=== PATIENT | female | born 1955 | race Caucasian/White ===

== ENCOUNTER 2016-12-03 18:28 | Inpatient (IN) | payer SELFPAY ==
[2016-12-03] MEDS ORDERED: DIPRIVAN 10 MG/ML IV ONE (20:22)
[2016-12-03] MEDS ORDERED: NACL 0.9% 1000 ML 1,000 ML IV ONE (20:23)
[2016-12-03] MEDS ORDERED: TYLENOL PO ONE (20:39)
[2016-12-03] MEDS ORDERED: MORPHINE IM ONE (20:39)
--- NOTE | 2016-12-03 21:18 | XRay Report ---
FINAL REPORT PROCEDURE: XR KNEE 1-2V RT TECHNIQUE: RIGHT knee radiographs, AP and lateral views. CPT 41431 HISTORY: right knee pain COMPARISON: No prior studies are available for comparison. FINDINGS: Fracture (s) and/or Dislocation(s): Comminuted fracture of the proximal shaft of the tibia. Fracture of the lateral tibial plateau with depression of 1.5 cm. Fracture of the proximal fibula.. Alignment: Normal . Joint space(s): Tricompartmental degenerative change. Soft tissues: Moderate joint effusion with fluid level consistent with hemarthrosis. Bone mineralization: Diminished. Foreign bodies: None . IMPRESSION: Proximal tibia fracture with depression of the lateral tibial plateau. Proximal fibular fracture. Joint effusion with hemarthrosis.
[2016-12-03] MEDS ORDERED: MORPHINE IV ONE (21:53)
[2016-12-03] MEDS ORDERED: BENADRYL IV ONE (21:53)
--- NOTE | 2016-12-03 21:56 | Emergency Department Report ---
HPI - General Time Seen by Provider: 12/03/16 19:57 - HPI HPI: The patient's is 61-year-old female who presents for evaluation of leg pain. The patient reports right knee pain for the past one hour prior to arrival, constant since onset, 10/10 in severity, throbbing quality, exacerbated with attempting movement of the right knee. She states that she fell down a possibly 7 stairs and injured her right knee. She has been unable to ablate on the right knee since. She denies, injury to the head, headache, syncope, chest pain, dyspnea, abdominal pain, back pain, pain elsewhere. ED Review of Systems ROS: Stated complaint: DISLOCATED KNEE Other details as noted in HPI Constitutional: denies: fever ENT: denies: throat or neck pain Respiratory: denies: cough, shortness of breath Cardiovascular: denies: chest pain Endocrine: denies unexplained weight loss or gain Gastrointestinal: denies: abdominal pain, nausea Genitourinary: denies: dysuria Musculoskeletal: denies: leg swelling Skin: denies: rash Neurological: denies: headache Hematological/Lymphatic: denies: easy bleeding or easy bruising Psych: reports sadness or hopelessness Physical Exam - Physical Exam Vital Signs: Blood pressure 100/70 heart rate 69 temperature 90.8 Fahrenheit respirations 18 O2 sat 99% Physical Exam: General: well-nourished, well-developed, no acute distress Head: Normocephalic, atraumatic Eyes: normal sclera, EOMI, PERRL ENT: Mucous membranes are pink and moist Neck: trachea midline, neck supple, No neck stiffness, no cervical adenopathy Respiratory: Breath sounds equal bilaterally, no wheezing, rales, or rhonchi Cardio: S1 and S2 present, no murmurs, rubs, gallops, capillary refill is brisk Abdomen: Normoactive bowel sounds, soft abdomen, no tenderness, no flank tenderness Musc: Deformity to the right knee present, right knee is swollen, lateral, and medial joint line tenderness to palpation present, there is knee effusion, distal pulses, sensation intact, motor function in the toes intact Skin: No rash Neuro: no facial drooping, normal speech Psych: Normal affect ED Medical Decision Making - Lab Data Result diagrams: 12/03/16 21:47 12/03/16 21:47 - Medical Decision Making The patient was seen and examined by myself. The patient is placed on a flight coordinator and continuous pulse ox. On initial evaluation, the patient was found to be in no distress. Evaluation orders were placed. The patient is given IV morphine for pain. X-ray of the right knee reveals a closed comminuted right tib-fib fracture, with 1.5 cm of compression of the lateral tibial plateau, also associated with hemarthrosis. The on-call orthopedic surgeon Dr. Day was contacted. He agrees to consultation and requested the patient be admitted for open reduction internal fixation. He also requests that the patient received CT scan of the right knee. The CT scan order was placed as a courtesy and preop labs were obtained. Lab results revealed mild nonspecific leukocytosis of 14, likely stress reaction. The on-call hospitalist service was contacted. They agreed to admit the patient for further treatment and close monitoring. The ED admit order was placed. The patient was admitted in guarded condition. Critical care attestation.: If time is entered above; I have spent that time in minutes in the direct care of this critically ill patient, excluding procedure time. ED Disposition Clinical Impression: Closed fracture of tibia and fibula Qualifiers: Encounter type: initial encounter Laterality: right Qualified Code(s): S82.201A - Unspecified fracture of shaft of right tibia, initial encounter for closed fracture Closed fracture of lateral portion of right tibial plateau Qualifiers: Encounter type: initial encounter Qualified Code(s): S82.121A - Displaced fracture of lateral condyle of right tibia, initial encounter for closed fracture Disposition: DC09 OP ADMIT IP TO THIS HOSP Is pt being admited?: Yes Does the pt Need Aspirin: Yes Condition: Serious Time of Disposition: 21:54
[2016-12-03 22:03] LABS: Basophils % (Auto) 0.3 % (0.0-1.8); Eosinophils % (Auto) 0.4 % (0.0-4.3); Hematocrit 39.8 % (30.3-42.9); Mean Corpuscular HGB Conc 33 % (30-34); Mean Corpuscular Hemoglobin 27 pg (28-32); Mean Corpuscular Volume 82 fl (79-97); Platelet Count 293 K/mm3 (140-440); Red Blood Count 4.87 M/mm3 (3.65-5.03); Red Cell Distribution Width 14.4 % (13.2-15.2); White Blood Count 14.8 K/mm3 (4.5-11.0)
[2016-12-03] MEDS ORDERED: NACL 0.9% 1000 ML 1,000 ML ONE (22:11)
[2016-12-03 22:14] LABS: INR 1.12 (0.87-1.13)
[2016-12-03 22:15] LABS: Partial Thromboplastin Time 30.3 Sec. (24.2-36.6)
[2016-12-03 22:21] LABS: Anion Gap 19 mmol/L; BUN/Creatinine Ratio 17.77; Blood Urea Nitrogen 16 mg/dL (7-17); Calcium 8.8 mg/dL (8.4-10.2); Carbon Dioxide 25 mmol/L (22-30); Chloride 99.9 mmol/L (98-107); Glucose 123 mg/dL (65-100); Potassium 4.8 mmol/L (3.6-5.0); Sodium 139 mmol/L (137-145)
--- NOTE | 2016-12-03 23:37 | History and Physical Report ---
History of Present Illness Chief complaint: I fell and hurt my knee History of present illness: 61 YO Female with Obesity presents to ED for evaluation. Pt states that she tripped and fell down a flight of stairs and felt pain to her right knee. The patient reports right knee pain for the past one hour prior to arrival, constant since onset, 10/10 in severity, throbbing quality, exacerbated with movement and relieved with rest. Pt unable to ablate and bear weight on the right knee since. Pt denies, fever, chills, CP, Palpitations, NVD, Syncope, Trauma, headache, dyspnea, abdominal pain, back pain, productive cough, recent ill contacts. Past History Past Medical History: other (obesity) Past Surgical History: No surgical history, Other (reviewed) Social history: single, lives with family. denies: smoking, alcohol abuse, prescription drug abuse Family history: hypertension Medications and Allergies Allergies Allergy/AdvReac Type Severity Reaction Status Date / Time ibuprofen [From Motrin] Allergy Headache Verified 12/03/16 22:24 Review of Systems All systems: negative Constitutional: other (right knee pain) Ears, nose, mouth and throat: no ear pain Breasts: no swelling Cardiovascular: no chest pain Respiratory: no cough Gastrointestinal: no abdominal pain Genitourinary Female: no urgency Musculoskeletal: no neck stiffness Integumentary: no rash Neurological: no weakness Psychiatric: no anxiety Endocrine: no cold intolerance Hematologic/Lymphatic: no easy bruising Allergic/Immunologic: no urticaria Exam - Constitutional Vitals: Temp Pulse Resp BP Pulse Ox 98 F 69 17 100/70 99 12/03/16 22:08 12/03/16 22:08 12/03/16 22:08 12/03/16 22:08 12/03/16 22:08 General appearance: Present: mild distress - EENT Eyes: Present: PERRL ENT: hearing intact, clear oral mucosa - Neck Neck: Present: supple, normal ROM - Respiratory Respiratory effort: normal Respiratory: bilateral: CTA - Cardiovascular Heart Sounds: Present: S1 & S2. Absent: rub, click - Extremities Extremities: pulses symmetrical, No edema, abnormal (right knee pain) Peripheral Pulses: within normal limits - Abdominal General gastrointestinal: Present: soft, non-tender, non-distended, normal bowel sounds Female genitourinary: Present: normal - Integumentary Integumentary: Present: clear, warm, dry - Musculoskeletal Musculoskeletal: gait normal, strength equal bilaterally - Psychiatric Psychiatric: appropriate mood/affect, intact judgment & insight - Neurologic Neurologic: CNII-XII intact, moves all extremities Results - Labs CBC & Chem 7: 12/03/16 21:47 12/03/16 21:47 Labs: Abnormal lab results 12/03/16 12/03/16 Range/Units 21:47 21:47 WBC 14.8 H (4.5-11.0) K/mm3 MCH 27 L (28-32) pg Lymph % (Auto) 7.9 L (13.4-35.0) % [place] # 1.1 H (0.0-0.8) K/mm3 Seg Neutrophils % 84.2 H (40.0-70.0) % Seg Neutrophils # 12.5 H (1.8-7.7) K/mm3 Glucose 123 H (65-100) mg/dL Assessment and Plan - Patient Problems (1) Closed fracture of lateral portion of right tibial plateau Current Visit: Yes Status: Acute Qualifiers: Encounter type: initial encounter Fracture healing: F Qualified Code(s): S82.121A - Displaced fracture of lateral condyle of right tibia, initial encounter for closed fracture Plan to address problem: Ortho consulted, pending surgical intervention, NPO after midnight (2) Obesity Current Visit: Yes Status: Acute Qualifiers: Obesity type: O Obesity classification: O Serious obesity comorbidity presence: S Body mass index: BMI 35.0-35.9 Plan to address problem: Balanced diet, increased physical activity, (3) DVT prophylaxis Current Visit: Yes Status: Acute
[2016-12-03] MEDS ORDERED: PROVENTIL IH PRN (23:43)
[2016-12-03] MEDS ORDERED: TYLENOL PO PRN (23:43)
[2016-12-03] MEDS ORDERED: DULCOLAX PR PRN (23:43)
[2016-12-03] MEDS ORDERED: ZOFRAN IV PRN (23:43)
[2016-12-03] MEDS ORDERED: MORPHINE IV PRN (23:43)
[2016-12-03] MEDS ORDERED: MILK OF MAGNESIA PO PRN (23:43)
--- NOTE | 2016-12-04 00:29 | Cat Scan Report ---
FINAL REPORT EXAM: CT LOWER EXTREMITY RT WO CON HISTORY: right knee pain FALL TECHNIQUE: Spiral CT scanning of the right knee. No IV contrast administered. Multiplanar reformations. PRIORS: Right knee radiographs of same date. FINDINGS: [place]-appearing fracture of proximal tibial metaphysis extending primarily to lateral tibial plateau, but also involving posterior aspect of medial tibial plateau, with considerable comminution, mild-moderate distraction and displacement, particularly of the lateral plateau fragments measuring up to 1 cm. Depression difficult to measure due to patient positioning and obliquity, but approximates 7 mm bony step-off. Markedly comminuted fracture of fibular head-neck, with mild distraction. No dislocation. Small joint effusion and hemarthrosis. Diffuse surrounding soft tissue edema. Diffuse osteopenia and degenerative change in all 3 joint compartments. IMPRESSION: 1. Markedly comminuted and distracted fracture of proximal tibia involving primary lateral but also medial plateaus. 2. Similarly comminuted fracture of right fibular head-neck.
--- NOTE | 2016-12-04 06:49 | Admit Criteria Form ---
Admission Criteria Documentation: MUSCULOSKELETAL DISEASE GRG Clinical Indications for Admission to Inpatient Care (Place 'X' for any and all applicable criteria): Hospital admission is needed for appropriate care of the patient because of 1 or more of the following: [ X]I. Fracture, dislocation, or other musculoskeletal injury requiring inpatient care(medical) as indicated by 1 or more of the following(4)(5)(6)(7) [ ]a) Vertebral fracture requiring observation for instability or neurologic compromise (8) [ ]b) Compartment syndrome (proven or cannot be ruled out during observation level of care) (9) [ ]c) Limb-threatening injury [ X]d) Major injury requiring inpatient stabilization such as traction initiation or external fixation before internal fixation or closure of complex or open fracture [ ]e) Major injury requiring inpatient treatment after emergency or observation level care (as appropriate) [ ]f) Severe pain requiring acute inpatient management [ ]g) Injury with suspicion of abuse or neglect (eg., child, dependent elderly) [ ]II. Newly diagnosed or suspected bone, joint, or orthopedic device infection (e.g., osteomyelitis, septic arthritis) needing 1 or more of the following(1)(2)(3) [ ]a) IV antibiotics that cannot be initiated in other than inpatient setting (e.g., patient too unstable or home infusion not available) [ ]b) Device removal or replacement [ ]c) Bone or soft tissue debridement [ ]d) Joint drainage (drain placement or repetitive aspirations) [ ]III. Severe rheumatologic disease (e.g., systemic lupus erythematosus, rheumatoid arthritis) with complications or comorbidities (Also use Optimal Recovery Care Criteria or General Recovery Criteria as appropriate on the basis of predominant condition), including 1 or more of the following( 10)(11)(12)(13) [ ]a) Severe infection (e.g., COMMUNICATIONS STRATEGIST infection, sepsis) (14) [ ]b) Respiratory complications, including 1 or more of the following : [ ]i) Pleural effusion with respiratory compromise [ ]ii) Pulmonary hypertension with congestive failure [ ]iii) Respiratory failure [ ]iv) Pulmonary hemorrhage (15) [ ]c) Hematologic disease, including 1 or more of the following: [ ]i) Coagulopathy with bleeding [ ]ii) Thrombosis with hypercoagulable state [ ]iii) Thrombotic thrombocytopenic purpura [ ]d) Cerebritis with seizures, psychosis, or other severe abnormalities [ ]e) Vertebral destruction with monitoring needed for cervical myelopathy& possible respiratory compromise [ ]f) Exacerbation that requires inpatient treatment (e.g., intravenous immunosuppression) (16) [ ]g) Acute renal failure [ ]h) Cerebritis with seizures, psychosis, Altered mental status, or other neurologic abnormalities [ ]i) Pericardial effusion with tamponade [ ]j) Vertebral destruction, with monitoring needed for cervical myelopathy and possible respiratory compromise [ ]IV. Severe vasculitis with complications or comorbidities (Also use Optimal Recovery Care Criteria General Recovery Criteria as appropriate on the basis of predominant condition), including 1 or more of the following(11)(12)(17)(18)(19)(20) [ ]a) Exacerbation that requires inpatient treatment (e.g., intravenous immunosuppression) (19)(21) [ ]b) Pulmonary hemorrhage (15) [ ]c) COMMUNICATIONS STRATEGIST vasculitis with seizures, psychosis, Altered mental status that is severe or persistent, or other severe abnormalities (22) [ ]d) Cerebral infarction [ ]e) Gastrointestinal ischemia [ ]f) Gangrene or threatened amputation [ ]g) Renal failure (16) [ ]h) Other significant complications of vasculitis ( eg., tissue or organ ischemia, organ dysfunction ) [ ]V. Severe myopathy as indicated by 1 or more of the following (28)(29) [ ]a) New onset of airway compromise or inability to swallow [ ]b) Respiratory deterioration with observation needed for impending respiratory failure [ ]c) Exacerbation that requires inpatient treatment (e.g., intravenous immunosuppression) [ ]. Severe crystal gout (arthropathy) indicated by 1 or more of the following (23)(24) [ ]a) Severe pain requiring acute inpatient management [ ]b) Exacerbation that requires inpatient treatment (e.g., intravenous treatment) [ ]VII.Rhabdomyolysis and 1 or more of the following (25)(26)(27) [ ]a) Acute renal failure [ ]b) Need for intravenous hydration after emergency or observation level care (as appropriate) [ ]c) Inability to maintain oral hydration [ ]d) Change in mental status [ ]e) Electrolyte abnormality that remains after emergency or observation level care (as appropriate) [ ]VIII Post amputation complication, as indicated by ANY ONE of the following [ ]a) Infection [ ]b) Dehiscence [ ]c) Myodesis failure [ ]IX. Severe pain requiring acute inpatient management due to musculoskeletal condition [ ]X. Musculoskeletal Disease and ALL of the following: [ ]a) Symptom or finding for which emergency and observation care have failed or are not considered appropriate (Use General Criteria: Observation Care as appropriate) [ ]b) Presence of ANY ONE of the following [ ]i) A General Admission Criteria [ ]ii) A Pediatric General Admission Criteria The original [facility] [employer] content created by [facility] [email or web address] has been revised. The portions of the content which have been revised are identified through the use of italic text or in bold, and [facility] has neither reviewed nor approved the modified material. All other unmodified content is copyright [facility] [employer]. Please see references footnoted in the original [facility] edition 2016 Admission Criteria Met: Yes
--- NOTE | 2016-12-04 07:13 | XRay Report ---
AP CHEST: HISTORY: Preoperative evaluation AP view of the chest demonstrates a normal mediastinal and cardiac contour with clear lungs and normal bony and soft tissue structures. IMPRESSION: Unremarkable AP chest.
[2016-12-04] MEDS ORDERED: LEVAQUIN 500MG/100ML 500 MG/100 ML BAG IV NR (08:00)
[2016-12-04 08:06] LABS: Basophils % (Auto) 0.1 % (0.0-1.8); Hematocrit 36.5 % (30.3-42.9); Hemoglobin 12.3 gm/dl (10.1-14.3); Mean Corpuscular HGB Conc 34 % (30-34); Mean Corpuscular Hemoglobin 27 pg (28-32); Mean Corpuscular Volume 81 fl (79-97); Platelet Count 273 K/mm3 (140-440); Red Cell Distribution Width 14.3 % (13.2-15.2); White Blood Count 9.4 K/mm3 (4.5-11.0)
--- NOTE | 2016-12-04 12:33 | Anesthesia Day of Surgery ---
Anesthesia Day of Surgery - Day of Surgery Patient Examined: Yes Patient H&P Reviewed: Yes Patient is NPO: Yes
--- NOTE | 2016-12-04 12:36 | Anesthesia Consultation ---
Anesthesia Consult and Med Hx Date of service: 12/04/16 - Airway Anesthetic Teeth Evaluation: Dentures (upper, some teeth on bottom row) ROM Head & Neck: Adequate Mental/Hyoid Distance: Adequate Mallampati Class: Class II Intubation Access Assessment: Probably Good - Pulmonary Exam CTA: Yes - Cardiac Exam Cardiac Exam: RRR - Pre-Operative Health Status ASA Pre-Surgery Classification: ASA2 Proposed Anesthetic Plan: General - Pulmonary Hx Smoking: No Hx Asthma: Yes (had not have flare in a long time, no inhaler uses) - Cardiovascular System Hx Hypertension: No Hx Heart Attack/AMI: No - Central Nervous System Hx Seizures: No CVA: No Hx Psychiatric Problems: No - Endocrine Hx Renal Disease: No Hx Liver Disease: No Hx Non-Insulin Dependent Diabetes: No Hx Hypothyroidism: Yes - Hematic Hx Anemia: No - Other Systems Hx Alcohol Use: No Hx Substance Use: No Hx Cancer: No Hx Obesity: Yes - Additional Comments Anesthesia Medical History Comments: NAC, states has allergic reaction (rash) for narcotic meds, facial swelling from ibuprofen and NSAID
[2016-12-04] MEDS ORDERED: NEO SYNEPHRINE/NS Syringe(OR USE) IV ONE (13:00)
[2016-12-04] MEDS: NACL 0.9% 1000 ML 1,000 ML IV SCH ×2 (13:00→20:35)
[2016-12-04] MEDS ORDERED: PEPCID PO NR (13:00)
[2016-12-04] MEDS ORDERED: VERSED IV NR (13:00)
[2016-12-04] MEDS ORDERED: DECADRON ONE (13:07)
[2016-12-04] MEDS ORDERED: XYLOCAINE 1% 20 mL ONE (13:07)
[2016-12-04] MEDS ORDERED: MARCAINE-EPI 0.5%-1:200,000 INFILTRATI ONE (13:08)
[2016-12-04] MEDS ORDERED: DIPRIVAN 10 MG/ML IV ONE (13:09)
--- NOTE | 2016-12-04 13:27 | Progress Note ---
Assessment and Plan Assessment and plan: Patient is 61-year-old woman with a history obesity BMI 35.2 presents to emergency department at [facility] after a mechanical fall with subsequent proximal right tibia fracture. -Acute closed nondisplaced fracture of the right tibia: Going for surgery today -Obesity, BMI 35.2: Lifestyle modification stress -DVT prophylaxis: Add subcutaneous heparin History Interval history: Patient seen and examined. Follow up on current diagnosis/right leg pains. Overnight uneventful. No cp, sob, n/v or severe headaches. Imaging, old records , testing, labs, nursing notes reviewed. Hospitalist Physical - Physical exam Narrative exam: GEN: WDWN, NAD, AWAKE, ALERT, ORIENTATED x 3 HEENT: NCAT, PERRL, EOMI, OP CLEAR NECK: SUPPLE, NO THYROMEGALY, NO JVD, NO LAD CVS: RRR, NORMAL S1S2 LUNGS/CHEST: CTA B, NORMAL CHEST EXPANSION B, GOOD AIR ENTRY B ABD: SOFT, NTND, GBS, NO REBOUND OR GUARDING EXT/SKIN: Right knee/upper leg SIGNIFICANT EDEMA OR RASH MSK: FROM X 4 EXTREMITIES except Limited range of motion of the right knee NEURO: CN 2-12 GROSSLY INTACT, NO FOCAL DEFICITS PSY: CALM - Constitutional Vitals: Temp Pulse Resp BP Pulse Ox 97.5 F L 67 14 112/51 97 12/04/16 11:05 12/04/16 11:05 12/04/16 11:05 12/04/16 11:05 12/04/16 11:05 Results - Labs CBC & Chem 7: 12/04/16 07:25 12/03/16 21:47 Labs: Laboratory Last Values WBC 9.4 K/mm3 (4.5-11.0) 12/04/16 07:25 RBC 4.50 M/mm3 (3.65-5.03) 12/04/16 07:25 Hgb 12.3 gm/dl (10.1-14.3) 12/04/16 07:25 Hct 36.5 % (30.3-42.9) 12/04/16 07:25 MCV 81 fl (79-97) 12/04/16 07:25 MCH 27 pg (28-32) L 12/04/16 07:25 MCHC 34 % (30-34) 12/04/16 07:25 RDW 14.3 % (13.2-15.2) 12/04/16 07:25 Plt Count 273 K/mm3 (140-440) 12/04/16 07:25 Lymph % (Auto) 8.7 % (13.4-35.0) L 12/04/16 07:25 [place] % (Auto) 2.1 % (0.0-7.3) 12/04/16 07:25 Eos % (Auto) 0.0 % (0.0-4.3) 12/04/16 07:25 Baso % (Auto) 0.1 % (0.0-1.8) 12/04/16 07:25 Lymph # 0.8 K/mm3 (1.2-5.4) L 12/04/16 07:25 [place] # 0.2 K/mm3 (0.0-0.8) 12/04/16 07:25 Eos # 0.0 K/mm3 (0.0-0.4) 12/04/16 07:25 Baso # 0.0 K/mm3 (0.0-0.1) 12/04/16 07:25 Seg Neutrophils % 89.1 % (40.0-70.0) H 12/04/16 07:25 Seg Neutrophils # 8.4 K/mm3 (1.8-7.7) H 12/04/16 07:25 PT 14.3 Sec. (12.2-14.9) 12/03/16 21:47 INR 1.12 (0.87-1.13) 12/03/16 21:47 APTT 30.3 Sec. (24.2-36.6) 12/03/16 21:47 Carbon Dioxide 25 mmol/L (22-30) 12/03/16 21:47 BUN 16 mg/dL (7-17) 12/03/16 21:47 Creatinine 0.9 mg/dL (0.7-1.2) 12/03/16 21:47 Estimated GFR > 60 ml/min 12/03/16 21:47 BUN/Creatinine Ratio 17.77 % 12/03/16 21:47 Glucose 123 mg/dL (65-100) H 12/03/16 21:47 Calcium 8.8 mg/dL (8.4-10.2) 12/03/16 21:47 Blood Type B POSITIVE 12/03/16 21:46 Antibody Screen TNR 12/03/16 21:46 TABATHA Antibody Screen Negative 12/03/16 21:46
[2016-12-04] MEDS ORDERED: XYLOCAINE MPF 2% ONE (14:07)
[2016-12-04] MEDS ORDERED: DILAUDID ONE ×2 (14:07→16:49)
[2016-12-04] MEDS ORDERED: ZOFRAN ONE (14:25)
[2016-12-04] MEDS ORDERED: NACL 0.9% 1000 ML 1,000 ML ONE (15:48)
--- NOTE | 2016-12-04 16:32 | Consultation ---
History of Present Illness - [facility] Consult date: 12/04/16 Consult reason: fracture History of present illness: 61 YO Female with Obesity presents to ED for evaluation. Pt states that she tripped and fell down a flight of stairs and felt pain to her right knee. The patient reports right knee pain for the past one hour prior to arrival, constant since onset, 10/10 in severity, throbbing quality, exacerbated with movement and relieved with rest. Pt unable to ablate and bear weight on the right leg. She was seen in the emergency room x-rays were taken revealing a bicondylar type right proximal tibia fracture with displacement. Past History Past Medical History: other (obesity) Past Surgical History: No surgical history, Other (reviewed) Social history: single, lives with family. denies: smoking, alcohol abuse, prescription drug abuse Family history: hypertension Medications and Allergies Allergies Allergy/AdvReac Type Severity Reaction Status Date / Time ibuprofen [From Motrin] Allergy Severe Swelling Verified 12/04/16 12:27 morphine AdvReac Rash Verified 12/04/16 12:29 Active Meds: Active Medications Acetaminophen (Tylenol) 650 mg PO Q4H PRN PRN Reason: Pain MILD(1-3)/Fever >100.5/KOENIG Albuterol (Proventil) 2.5 mg IH Q4HRT PRN PRN Reason: Shortness Of Breath Bisacodyl (Dulcolax) 10 mg NH QDAY PRN PRN Reason: Constipation unrelieved by MOM Famotidine (Pepcid) 20 mg PO PREOP NR Stop: 12/04/16 20:00 Last Admin: 12/04/16 13:00 Dose: 20 mg Heparin Sodium (Porcine) (Heparin) 5,000 unit SUB-Q Q12HR ESME Levofloxacin/Dextrose (Levaquin 500mg/100ml) 500 mg in 100 mls @ 100 mls/hr IV PREOP NR PRN Reason: Protocol Stop: 12/05/16 23:59 Sodium Chloride (Nacl 0.9% 1000 Ml) 1,000 mls @ 75 mls/hr IV DIRECT ESME Last Admin: 12/04/16 13:00 Dose: 75 mls/hr Magnesium Hydroxide (Milk Of Magnesia) 30 ml PO Q4H PRN PRN Reason: Constipation Midazolam HCl (Versed) 2 mg IV PREOP NR Stop: 12/04/16 23:59 Last Admin: 12/04/16 13:10 Dose: 2 mg Morphine Sulfate (Morphine) 2 mg IV Q6H PRN PRN Reason: Pain , Severe (7-10) Ondansetron HCl (Zofran) 4 mg IV Q8H PRN PRN Reason: N/V unrelieved by Reglan Oxycodone/Acetaminophen (Percocet 5/325) 1 tab PO Q6H PRN PRN Reason: Pain, Moderate (4-6) Physical Examination - Physical exam Narrative exam: Physical examination well-nourished moderately obese female in no obvious distress significant muscle skull findings relates to the right lower extremity. She was noted to have moderate swelling over the knee and proximal leg skin was intact she was tender to palpation there was gross motion detected distal neurovascular status is intact patient had a significant guarding therefore full physical examination of the knee not performed at this time Assessment and Plan Assessment -right bicondylar comminuted tibial plateau fracture Recommendations - she will require open reduction internal fixation right proximal tibia with plate and screws
--- NOTE | 2016-12-04 16:53 | Procedure Note ---
Date of procedure: 12/04/16 Pre-op diagnosis: right comminuted bicondylar tibial plateau fracture Post-op diagnosis: same Procedure: Procedure- open reduction internal fixation right tibial plateau Indications - 61-year-old female who sustained a comminuted bicondylar tibial plateau fracture as a result of a fall down some stairs prior to admission Procedure She was brought to the OR and placed in the OR table in the supine position following induction and intubation by anesthesia the patient's right lower extremity was prepped and draped in the usual sterile manner. A timeout procedure was done to identify the patient and the correct operative site. The leg was then exsanguinated followed by inflation of the pneumatic tourniquet to 300 mmHg. A medial incision was made again at the joint line and curving downward along the tibial shaft is taken down sharply through skin and subcutaneous Gap the retractors were placed in the wound base fracture was identified medially she was noted to have a somewhat transverse type fracture approximately 3 cm from the joint line and the bony fragments were then manipulated into a more reduced position next a 7-hole medial condylar plate was applied and held in place with a K wire C-arm fluoroscopy was used to evaluate the reduction medially next a 4.5 cortical screw was used to secure the plate medially forming a buttress. Next a second lateral incision was made again this was taken down through skin and subcutaneous the fracture site was identified patient was noted to have significant comminution along the lateral cortex with the lateral fragment positioned slightly posteriorly we were able to evaluate the articular surface where she was noted to have significant cartilage injury with small bony fragments noted after manipulating the bony fragments into a better position a lateral locked plate was applied to the proximal tibia and secured via K wires and cortical screw fixation. C-arm fluoroscopy was brought in the fracture evaluated in both the AP and lateral views next screws were locking screws were applied to the proximal fragment both the medial and lateral plates the knee was then checked for stability and she was found to be stable to stress testing. Next the wound was copiously irrigated and was closed in a standard routine fashion. Dressings were applied the patient tolerated the procedure there were no complications and she was sent to postanesthesia recovery Anesthesia: margaux MIR Surgeon: KIM HUTTON Violin Restorer: GERALDINE TREVINO Estimated blood loss: 50-100ml Pathology: none Condition: stable Disposition: PACU
[2016-12-04] MEDS ORDERED: DILAUDID IV PRN (16:56)
[2016-12-04] MEDS ORDERED: SODIUM CHLORIDE FLUSH SYRINGE 10 ML IV NR (17:00)
[2016-12-04] MEDS: ANCEF/NS 1 GM/50 ML 1 GM/50 ML BAG IV SCH (20:36)
[2016-12-04] MEDS: HEPARIN SUB-Q SCH (22:30)
[2016-12-05] MEDS: ANCEF/NS 1 GM/50 ML 1 GM/50 ML BAG IV SCH (04:23)
[2016-12-05 05:53] LABS: Hematocrit 32.4 % (30.3-42.9); Hemoglobin 10.5 gm/dl (10.1-14.3); Mean Corpuscular HGB Conc 33 % (30-34); Mean Corpuscular Hemoglobin 27 pg (28-32); Mean Corpuscular Volume 83 fl (79-97); Platelet Count 241 K/mm3 (140-440); Red Blood Count 3.91 M/mm3 (3.65-5.03); Red Cell Distribution Width 15.1 % (13.2-15.2); White Blood Count 12.5 K/mm3 (4.5-11.0)
[2016-12-05 06:13] LABS: Anion Gap 16 mmol/L; BUN/Creatinine Ratio 16.25; Blood Urea Nitrogen 13 mg/dL (7-17); Calcium 7.6 mg/dL (8.4-10.2); Carbon Dioxide 27 mmol/L (22-30); Chloride 107.6 mmol/L (98-107); Glucose 122 mg/dL (65-100); Potassium 4.6 mmol/L (3.6-5.0); Sodium 146 mmol/L (137-145)
--- NOTE | 2016-12-05 08:15 | XRay Report ---
RIGHT KNEE, 2 VIEWS History: Intraoperative films, right tibia fracture. Findings: AP and lateral fluoroscopic images of the right knee were obtained during surgery. The images demonstrate internal fixation of a complex tibial plateau fracture. The distal femur, patella and proximal right fibular are grossly intact. Please correlate with the operative notes by Dr. Lowry as needed. Impression: Internal fixation of a right tibial plateau fracture.
[2016-12-05] MEDS: PERCOCET 5/325 PO PRN ×2 (09:46→15:50)
[2016-12-05] MEDS: HEPARIN SUB-Q SCH ×2 (09:46→23:00)
[2016-12-05] MEDS: NACL 0.9% 1000 ML 1,000 ML IV SCH (10:44)
--- NOTE | 2016-12-05 12:40 | Progress Note ---
Assessment and Plan Assessment and plan: Patient is 61-year-old woman with a history obesity BMI 35.2 presents to emergency department at [facility] after a mechanical fall with subsequent proximal right tibia fracture. -Acute closed nondisplaced fracture of the right tibia:s/p surgery, Date of procedure: 12/04/16 Pre-op diagnosis: right comminuted bicondylar tibial plateau fracture, Post-op diagnosis: same, Procedure: Procedure- open reduction internal fixation right tibial plateau, Indications - 61-year-old female who sustained a comminuted bicondylar tibial plateau fracture as a result of a fall down some stairs prior to admission, Procedure She was brought to the OR and placed in the OR table in the supine position following induction and intubation by anesthesia the patient's right lower extremity was prepped and draped in the usual sterile manner. A timeout procedure was done to identify the patient and the correct operative site. The leg was then exsanguinated followed by inflation of the pneumatic tourniquet to 300 mmHg. A medial incision was made again at the joint line and curving downward along the tibial shaft is taken down sharply through skin and subcutaneous Gap the retractors were placed in the wound base fracture was identified medially she was noted to have a somewhat transverse type fracture approximately 3 cm from the joint line and the bony fragments were then manipulated into a more reduced position next a 7-hole medial condylar plate was applied and held in place with a K wire C-arm fluoroscopy was used to evaluate the reduction medially next a 4.5 cortical screw was used to secure the plate medially forming a buttress. Next a second lateral incision was made again this was taken down through skin and subcutaneous the fracture site was identified patient was noted to have significant comminution along the lateral cortex with the lateral fragment positioned slightly posteriorly we were able to evaluate the articular surface where she was noted to have significant cartilage injury with small bony fragments noted after manipulating the bony fragments into a better position a lateral locked plate was applied to the proximal tibia and secured via K wires and cortical screw fixation. C-arm fluoroscopy was brought in the fracture evaluated in both the AP and lateral views next screws were locking screws were applied to the proximal fragment both the medial and lateral plates the knee was then checked for stability and she was found to be stable to stress testing. Next the wound was copiously irrigated and was closed in a standard routine fashion. Dressings were applied the patient tolerated the procedure there were no complications and she was sent to postanesthesia recovery Anesthesia: CLARKE, regional Surgeon: KIM DAY Radio Interference Expert: GERALDINE TREVINO Estimated blood loss: 50-100ml Pathology: none Condition: stable Disposition: PACU -Obesity, BMI 35.2: Lifestyle modification stressed -DVT prophylaxis: Add subcutaneous heparin -Leukocytosis most likely reactive, will follow: repeat am full code dispo: anticipate d/c tomorrow once cleared by Ortho, Dr. Day History Interval history: Patient seen and examined. Follow up on current diagnosis/right leg pains. Overnight uneventful. No cp, sob, n/v or severe headaches. Imaging, old records , testing, labs, nursing notes reviewed. Ernie patterson and Ernie malhotra at bedside. Hospitalist Physical - Physical exam Narrative exam: GEN: WDWN, NAD, AWAKE, ALERT, ORIENTATED x 3 HEENT: NCAT, PERRL, EOMI, OP CLEAR NECK: SUPPLE, NO THYROMEGALY, NO JVD, NO LAD CVS: RRR, NORMAL S1S2 LUNGS/CHEST: CTA B, NORMAL CHEST EXPANSION B, GOOD AIR ENTRY B ABD: SOFT, NTND, GBS, NO REBOUND OR GUARDING EXT/SKIN: Right knee/upper leg SIGNIFICANT EDEMA OR RASH MSK: FROM X 4 EXTREMITIES except Limited range of motion of the right knee, surgical dsg c/d/i NEURO: CN 2-12 GROSSLY INTACT, NO FOCAL DEFICITS PSY: CALM - Constitutional Vitals: Temp Pulse Resp BP Pulse Ox 98.2 F 70 18 109/57 100 12/05/16 12:01 12/05/16 12:01 12/05/16 12:01 12/05/16 12:01 12/05/16 12:01 Results - Labs CBC & Chem 7: 12/05/16 05:19 12/05/16 05:19 Labs: Laboratory Last Values WBC 12.5 K/mm3 (4.5-11.0) H 12/05/16 05:19 RBC 3.91 M/mm3 (3.65-5.03) 12/05/16 05:19 Hgb 10.5 gm/dl (10.1-14.3) 12/05/16 05:19 Hct 32.4 % (30.3-42.9) 12/05/16 05:19 MCV 83 fl (79-97) 12/05/16 05:19 MCH 27 pg (28-32) L 12/05/16 05:19 MCHC 33 % (30-34) 12/05/16 05:19 RDW 15.1 % (13.2-15.2) 12/05/16 05:19 Plt Count 241 K/mm3 (140-440) 12/05/16 05:19 Lymph % (Auto) 8.7 % (13.4-35.0) L 12/04/16 07:25 [place] % (Auto) 2.1 % (0.0-7.3) 12/04/16 07:25 Eos % (Auto) 0.0 % (0.0-4.3) 12/04/16 07:25 Baso % (Auto) 0.1 % (0.0-1.8) 12/04/16 07:25 Lymph # 0.8 K/mm3 (1.2-5.4) L 12/04/16 07:25 [place] # 0.2 K/mm3 (0.0-0.8) 12/04/16 07:25 Eos # 0.0 K/mm3 (0.0-0.4) 12/04/16 07:25 Baso # 0.0 K/mm3 (0.0-0.1) 12/04/16 07:25 Seg Neutrophils % 89.1 % (40.0-70.0) H 12/04/16 07:25 Seg Neutrophils # 8.4 K/mm3 (1.8-7.7) H 12/04/16 07:25 PT 14.3 Sec. (12.2-14.9) 12/03/16 21:47 INR 1.12 (0.87-1.13) 12/03/16 21:47 APTT 30.3 Sec. (24.2-36.6) 12/03/16 21:47 Sodium 146 mmol/L (137-145) H D 12/05/16 05:19 Potassium 4.6 mmol/L (3.6-5.0) 12/05/16 05:19 Chloride 107.6 mmol/L (98-107) H 12/05/16 05:19 Carbon Dioxide 27 mmol/L (22-30) 12/05/16 05:19 Anion Gap 16 mmol/L 12/05/16 05:19 BUN 13 mg/dL (7-17) 12/05/16 05:19 Creatinine 0.8 mg/dL (0.7-1.2) 12/05/16 05:19 Estimated GFR > 60 ml/min 12/05/16 05:19 BUN/Creatinine Ratio 16.25 % 12/05/16 05:19 Glucose 122 mg/dL (65-100) H 12/05/16 05:19 Calcium 7.6 mg/dL (8.4-10.2) L 12/05/16 05:19 Blood Type B POSITIVE 12/03/16 21:46 Antibody Screen TNR 12/03/16 21:46 TABATHA Antibody Screen Negative 12/03/16 21:46
--- NOTE | 2016-12-05 14:48 | Progress Note ---
Subjective Date of service: 12/05/16 Interval history: 1st POD after ORIF of right ankle Patient is in the bed, comfortable. Pain is well controlled with pain meds. Prepared to be ambulated by physical therapist. No anesthesia complications Objective - Constitutional Vitals: Vital Signs - 12hr 12/05/16 12/05/16 12/05/16 03:30 07:44 12:01 Temperature 98.4 F 98.6 F 98.2 F Pulse Rate 63 67 70 Respiratory 20 18 18 Rate Blood Pressure 98/58 121/57 109/57 O2 Sat by Pulse 100 100 100 Oximetry - Labs CBC & Chem 7: 12/05/16 05:19 12/05/16 05:19 Labs: Abnormal lab results 12/05/16 12/05/16 Range/Units 05:19 05:19 WBC 12.5 H (4.5-11.0) K/mm3 MCH 27 L (28-32) pg Sodium 146 H D (137-145) mmol/L Chloride 107.6 H (98-107) mmol/L Glucose 122 H (65-100) mg/dL Calcium 7.6 L (8.4-10.2) mg/dL
--- NOTE | 2016-12-05 17:38 | Progress Note ---
Assessment and Plan s/p ORIF right tibia doing well PT for ROM exercises hopefully dc to home next day or so Subjective Date of service: 12/05/16 Interval history: no c/o's noted, doing well son at bedside Objective Vital signs: Vital Signs - 12hr 12/05/16 12/05/16 07:44 12:01 Temperature 98.6 F 98.2 F Pulse Rate 67 70 Respiratory 18 18 Rate Blood Pressure 121/57 109/57 O2 Sat by Pulse 100 100 Oximetry Narrative Exam: post op dressing intact, compartments soft distal n/v intact - Labs CBC & BMP: 12/05/16 05:19 12/05/16 05:19 Labs: Abnormal lab results 12/05/16 12/05/16 Range/Units 05:19 05:19 WBC 12.5 H (4.5-11.0) K/mm3 MCH 27 L (28-32) pg Sodium 146 H D (137-145) mmol/L Chloride 107.6 H (98-107) mmol/L Glucose 122 H (65-100) mg/dL Calcium 7.6 L (8.4-10.2) mg/dL
[2016-12-06] MEDS: NACL 0.9% 1000 ML 1,000 ML IV SCH (00:12)
[2016-12-06] MEDS: PERCOCET 5/325 PO PRN ×3 (01:49→20:58)
[2016-12-06 04:09] LABS: Hematocrit 27.1 % (30.3-42.9); Mean Corpuscular HGB Conc 33 % (30-34); Mean Corpuscular Hemoglobin 27 pg (28-32); Mean Corpuscular Volume 83 fl (79-97); Platelet Count 193 K/mm3 (140-440); Red Blood Count 3.27 M/mm3 (3.65-5.03)
[2016-12-06 04:13] LABS: Anion Gap 14 mmol/L; BUN/Creatinine Ratio 15.71; Blood Urea Nitrogen 11 mg/dL (7-17); Calcium 7.3 mg/dL (8.4-10.2); Carbon Dioxide 28 mmol/L (22-30); Chloride 105.4 mmol/L (98-107); Glucose 102 mg/dL (65-100); Potassium 3.8 mmol/L (3.6-5.0); Sodium 144 mmol/L (137-145)
--- NOTE | 2016-12-06 11:36 | Progress Note ---
Assessment and Plan Assessment and plan: Patient is 61-year-old woman with a history obesity BMI 35.2 presents to emergency department at [facility] after a mechanical fall with subsequent proximal right tibia fracture. -Acute closed nondisplaced fracture of the right tibia:s/p surgery, Date of procedure: 12/04/16 Pre-op diagnosis: right comminuted bicondylar tibial plateau fracture, Post-op diagnosis: same, Procedure: Procedure- open reduction internal fixation right tibial plateau, Indications - 61-year-old female who sustained a comminuted bicondylar tibial plateau fracture as a result of a fall down some stairs prior to admission, Procedure She was brought to the OR and placed in the OR table in the supine position following induction and intubation by anesthesia the patient's right lower extremity was prepped and draped in the usual sterile manner. A timeout procedure was done to identify the patient and the correct operative site. The leg was then exsanguinated followed by inflation of the pneumatic tourniquet to 300 mmHg. A medial incision was made again at the joint line and curving downward along the tibial shaft is taken down sharply through skin and subcutaneous Gap the retractors were placed in the wound base fracture was identified medially she was noted to have a somewhat transverse type fracture approximately 3 cm from the joint line and the bony fragments were then manipulated into a more reduced position next a 7-hole medial condylar plate was applied and held in place with a K wire C-arm fluoroscopy was used to evaluate the reduction medially next a 4.5 cortical screw was used to secure the plate medially forming a buttress. Next a second lateral incision was made again this was taken down through skin and subcutaneous the fracture site was identified patient was noted to have significant comminution along the lateral cortex with the lateral fragment positioned slightly posteriorly we were able to evaluate the articular surface where she was noted to have significant cartilage injury with small bony fragments noted after manipulating the bony fragments into a better position a lateral locked plate was applied to the proximal tibia and secured via K wires and cortical screw fixation. C-arm fluoroscopy was brought in the fracture evaluated in both the AP and lateral views next screws were locking screws were applied to the proximal fragment both the medial and lateral plates the knee was then checked for stability and she was found to be stable to stress testing. Next the wound was copiously irrigated and was closed in a standard routine fashion. Dressings were applied the patient tolerated the procedure there were no complications and she was sent to postanesthesia recovery Anesthesia: CLARKE, regional Surgeon: KIM HUTTON Interpretative Dancer: GERALDINE TREVINO Estimated blood loss: 50-100ml Pathology: none Condition: stable Disposition: PACU -Obesity, BMI 35.2: Lifestyle modification stressed -DVT prophylaxis: Add subcutaneous heparin -Leukocytosis most likely reactive, will follow: repeat am full code dispo: anticipate d/c today if h/h stable and bp stable (running borderline low bp due to the IV morphine) History Interval history: Patient seen and examined. Follow up on current diagnosis/right leg pains. Overnight uneventful. No cp, sob, n/v or severe headaches. Imaging, old records , testing, labs, nursing notes reviewed. Ernie malhotra at bedside and was the commercial account executive, pt declined Language line services Hospitalist Physical - Physical exam Narrative exam: GEN: WDWN, NAD, AWAKE, ALERT, ORIENTATED x 3 HEENT: NCAT, PERRL, EOMI, OP CLEAR NECK: SUPPLE, NO THYROMEGALY, NO JVD, NO LAD CVS: RRR, NORMAL S1S2 LUNGS/CHEST: CTA B, NORMAL CHEST EXPANSION B, GOOD AIR ENTRY B ABD: SOFT, NTND, GBS, NO REBOUND OR GUARDING EXT/SKIN: Right knee/upper leg SIGNIFICANT EDEMA OR RASH MSK: FROM X 4 EXTREMITIES except Limited range of motion of the right knee, surgical dsg c/d/i NEURO: CN 2-12 GROSSLY INTACT, NO FOCAL DEFICITS PSY: CALM - Constitutional Vitals: Temp Pulse Resp BP Pulse Ox 97.9 F 66 20 100/60 100 12/06/16 07:00 12/06/16 07:00 12/06/16 07:00 12/06/16 07:00 12/06/16 07:00 Results - Labs CBC & Chem 7: 12/06/16 03:43 12/06/16 03:43 Labs: Laboratory Last Values WBC 10.0 K/mm3 (4.5-11.0) 12/06/16 03:43 RBC 3.27 M/mm3 (3.65-5.03) L 12/06/16 03:43 Hgb 9.0 gm/dl (10.1-14.3) L 12/06/16 03:43 Hct 27.1 % (30.3-42.9) L 12/06/16 03:43 MCV 83 fl (79-97) 12/06/16 03:43 MCH 27 pg (28-32) L 12/06/16 03:43 MCHC 33 % (30-34) 12/06/16 03:43 RDW 15.0 % (13.2-15.2) 12/06/16 03:43 Plt Count 193 K/mm3 (140-440) 12/06/16 03:43 Lymph % (Auto) 8.7 % (13.4-35.0) L 12/04/16 07:25 [place] % (Auto) 2.1 % (0.0-7.3) 12/04/16 07:25 Eos % (Auto) 0.0 % (0.0-4.3) 12/04/16 07:25 Baso % (Auto) 0.1 % (0.0-1.8) 12/04/16 07:25 Lymph # 0.8 K/mm3 (1.2-5.4) L 12/04/16 07:25 [place] # 0.2 K/mm3 (0.0-0.8) 12/04/16 07:25 Eos # 0.0 K/mm3 (0.0-0.4) 12/04/16 07:25 Baso # 0.0 K/mm3 (0.0-0.1) 12/04/16 07:25 Seg Neutrophils % 89.1 % (40.0-70.0) H 12/04/16 07:25 Seg Neutrophils # 8.4 K/mm3 (1.8-7.7) H 12/04/16 07:25 PT 14.3 Sec. (12.2-14.9) 12/03/16 21:47 INR 1.12 (0.87-1.13) 12/03/16 21:47 APTT 30.3 Sec. (24.2-36.6) 12/03/16 21:47 Sodium 144 mmol/L (137-145) 12/06/16 03:43 Potassium 3.8 mmol/L (3.6-5.0) 12/06/16 03:43 Chloride 105.4 mmol/L (98-107) 12/06/16 03:43 Carbon Dioxide 28 mmol/L (22-30) 12/06/16 03:43 Anion Gap 14 mmol/L 12/06/16 03:43 BUN 11 mg/dL (7-17) 12/06/16 03:43 Creatinine 0.7 mg/dL (0.7-1.2) 12/06/16 03:43 Estimated GFR > 60 ml/min 12/06/16 03:43 BUN/Creatinine Ratio 15.71 % 12/06/16 03:43 Glucose 102 mg/dL (65-100) H 12/06/16 03:43 Calcium 7.3 mg/dL (8.4-10.2) L 12/06/16 03:43 Blood Type B POSITIVE 12/03/16 21:46 Antibody Screen TNR 12/03/16 21:46 TABATHA Antibody Screen Negative 12/03/16 21:46
--- NOTE | 2016-12-06 11:41 | Discharge Summary ---
Providers - Providers Date of Admission: 12/03/16 23:44 Date of discharge: 12/07/16 Attending physician: CHLOE OLIVAS 12/03/16 23:51 Consult to Physician [CONS] Stat Consulting Provider: KIM DAY Reason For Exam: right tib/fib proximal fracture Place consult to:: Dr. Day Notified:: via his phone Phone number called:: his number Was contact made?: Yes If yes, spoke with:: Dr. Day Time called:: 21:33 Comment:: Dr. Khan ( dr) spoke with Dr. Day 12/04/16 16:35 Physical Therapy Evaluation and Treat [CONS] Routine Comment: range of motion exercises right lower extremity Reason For Exam: postop evaluation Weight bearing status?: Nonwt bearing Assistive devices?: Yes If so list: Walker Primary care physician: GUEST RELATIONS EXECUTIVE Hospitalization Condition: Stable Hospital course: Patient is 61-year-old woman with a history of obesity BMI 35.2 who presented to emergency department at [facility] after a mechanical fall with subsequent proximal right tibia fracture. -Acute closed nondisplaced fracture of the right tibia:s/p surgery, Date of procedure: 12/04/16 Pre-op diagnosis: right comminuted bicondylar tibial plateau fracture, Post-op diagnosis: same, Procedure: Procedure- open reduction internal fixation right tibial plateau, Indications - 61-year-old female who sustained a comminuted bicondylar tibial plateau fracture as a result of a fall down some stairs prior to admission, Procedure She was brought to the OR and placed in the OR table in the supine position following induction and intubation by anesthesia the patient's right lower extremity was prepped and draped in the usual sterile manner. A timeout procedure was done to identify the patient and the correct operative site. The leg was then exsanguinated followed by inflation of the pneumatic tourniquet to 300 mmHg. A medial incision was made again at the joint line and curving downward along the tibial shaft is taken down sharply through skin and subcutaneous Gap the retractors were placed in the wound base fracture was identified medially she was noted to have a somewhat transverse type fracture approximately 3 cm from the joint line and the bony fragments were then manipulated into a more reduced position next a 7-hole medial condylar plate was applied and held in place with a K wire C-arm fluoroscopy was used to evaluate the reduction medially next a 4.5 cortical screw was used to secure the plate medially forming a buttress. Next a second lateral incision was made again this was taken down through skin and subcutaneous the fracture site was identified patient was noted to have significant comminution along the lateral cortex with the lateral fragment positioned slightly posteriorly we were able to evaluate the articular surface where she was noted to have significant cartilage injury with small bony fragments noted after manipulating the bony fragments into a better position a lateral locked plate was applied to the proximal tibia and secured via K wires and cortical screw fixation. C-arm fluoroscopy was brought in the fracture evaluated in both the AP and lateral views next screws were locking screws were applied to the proximal fragment both the medial and lateral plates the knee was then checked for stability and she was found to be stable to stress testing. Next the wound was copiously irrigated and was closed in a standard routine fashion. Dressings were applied the patient tolerated the procedure there were no complications and she was sent to postanesthesia recovery Anesthesia: CLARKE regional Surgeon: KIM DAY Glass Silverer: GERALDINE TREVINO Estimated blood loss: 50-100ml Pathology: none Condition: stable Disposition: PACU -Obesity, BMI 35.2: Lifestyle modification stressed -DVT prophylaxis: Add subcutaneous heparin -Leukocytosis most likely reactive, will follow: repeat am full code dispo: anticipate d/c today if h/h stable, bp stable (running borderline low bp due to the narcotics) and cleared by Dr. Shay villaseñor Disposition: [id number]/TX-06 HOME UNDER HOME [facility] Time spent for discharge: 33 minutes Core Measure Documentation - Palliative Care Palliative Care/ Comfort Measures: Not Applicable - Core Measures Any of the following diagnoses?: none - VTE Discharge Requirements Deep Vein Thrombosis/Pulmonary Embolism Present on Admission: No Has pt received <5 days of overlap therapy or INR<2.0: No Anticoagulant overlap therapy prescribed at discharge: No Contraindication No Overlap Therapy order at DC: Not Indicated Exam - Physical Exam Narrative exam: GEN: WDWN, NAD, AWAKE, ALERT, ORIENTATED x 3 HEENT: NCAT, PERRL, EOMI, OP CLEAR NECK: SUPPLE, NO THYROMEGALY, NO JVD, NO LAD CVS: RRR, NORMAL S1S2 LUNGS/CHEST: CTA B, NORMAL CHEST EXPANSION B, GOOD AIR ENTRY B ABD: SOFT, NTND, GBS, NO REBOUND OR GUARDING EXT/SKIN: Right knee/upper leg SIGNIFICANT EDEMA OR RASH MSK: FROM X 4 EXTREMITIES except Limited range of motion of the right knee, surgical dsg c/d/i NEURO: CN 2-12 GROSSLY INTACT, NO FOCAL DEFICITS PSY: CALM - Constitutional Vitals: Temp Pulse Resp BP Pulse Ox 97.9 F 66 20 100/60 100 12/06/16 07:00 12/06/16 07:00 12/06/16 07:00 12/06/16 07:00 12/06/16 07:00 Plan Activity: other (no strenous activites until cleared by surgeon) Weight Bearing Status: Weight Bear as Tolerated Diet: regular Wound: per your surgeon's advice Special Instructions: other (home health services ordered) Follow up with: PRIMARY CARE, [Primary Care Provider] - 3-5 Days Prescriptions: oxyCODONE /ACETAMINOPHEN [Percocet 5/325 mg] 1 tab PO Q6H PRN #30 tablet PRN Reason: Pain , Severe (7-10) Polyethylene Glycol 3350 [Miralax 3350] 17 gm PO QDAY #15 packet
[2016-12-06 12:42] LABS: Hematocrit 28.1 % (30.3-42.9); Hemoglobin 9.4 gm/dl (10.1-14.3)
[2016-12-07 07:40] VITALS: BP 115/65
--- NOTE | 2016-12-07 09:59 | Progress Note ---
Assessment and Plan Assessment Doing well postop day 2, was discharged to home patient encouraged to perform range of motion exercises she will return for follow-up in 1 week in the office Subjective Date of service: 12/07/16 Interval history: Doing well no major complaints was to know when she can go home Objective Vital signs: Vital Signs - 12hr 12/06/16 12/07/16 12/07/16 21:58 01:36 07:00 Temperature 98.6 F 98.9 F Pulse Rate 66 69 Respiratory 20 20 18 Rate Blood Pressure 101/59 115/65 O2 Sat by Pulse 100 97 Oximetry Narrative Exam: Postoperative dressings removed incisions clean and dry minimal drainage noted compartments soft Homans sign negative - Labs CBC & BMP: 12/06/16 12:20 12/06/16 03:43 Labs: Abnormal lab results 12/06/16 Range/Units 12:20 Hgb 9.4 L (10.1-14.3) gm/dl Hct 28.1 L (30.3-42.9) %
[2016-12-07] MEDS: PERCOCET 5/325 PO PRN (10:57)
== END 2016-12-07 11:15 | disposition home health service (06) | DRG 494 ==
LOC: ED 18:28 → 3A 23:44 → 2B-SURG 12-04 17:39
PROVIDERS: ADMIT Internal Medicine; ATTEND Internal Medicine
PROC: 0QSG04Z Reposition Right Tibia with Internal Fixation Device, Open Approach (ICD-10-PCS; principal; 2016-12-04)
DX: S82.121A Displaced fracture of lateral condyle of right tibia, initial encounter for closed fracture (principal); E66.9 Obesity, unspecified; Z68.35 Body mass index [BMI] 35.0-35.9, adult; W19.XXXD Unspecified fall, subsequent encounter; Z88.6 Allergy status to analgesic agent; Z82.49 Family history of ischemic heart disease and other diseases of the circulatory system
CPT/HCPCS: 36415; 64450; 71010; 80048; 85014; 85018; 85025; 85027; 85610; 85730; 86850; 86900; 86901; 93005; 93010; 96372; 96374; 96375; 99285; C1713; C1769; J0690; J1100; J1170; J1200; J1644; J1956; J2250; J2270; J2370; J2405; J2704; J2930; J7030